=== PATIENT | male | born 1980 | race Caucasian/White ===

== ENCOUNTER 2017-12-16 13:27 | Emergency (ER) | payer OTHER | END 2017-12-16 13:44 | disposition left against medical advice (07) | LOC: ED 13:38 | DX: Z00.00 Encounter for general adult medical examination without abnormal findings (principal) | CPT/HCPCS: 99281 ==

== ENCOUNTER 2017-12-22 19:22 | Emergency (ER) | payer OTHER ==
[~2017-12-22] VITALS: Ht 177.8 cm; Wt 62.0 kg
[2017-12-22 21:18] VITALS: BP 127/75
== END 2017-12-22 22:17 | disposition home or self-care (01) ==
LOC: ED 20:14
DX: S92.254A Nondisplaced fracture of navicular [scaphoid] of right foot, initial encounter for closed fracture (principal); S06.310A Contusion and laceration of right cerebrum without loss of consciousness, initial encounter; F17.200 Nicotine dependence, unspecified, uncomplicated; X58.XXXA Exposure to other specified factors, initial encounter; Y93.89 Activity, other specified; Y92.89 Other specified places as the place of occurrence of the external cause; Y99.8 Other external cause status
CPT/HCPCS: 70450; 72020; 72050; 99284

== ENCOUNTER 2018-05-05 07:10 | Emergency (ER) | payer MEDICAID, OTHER ==
[~2018-05-05] VITALS: Ht 177.8 cm; Wt 72.5 kg
[2018-05-05 07:20] VITALS: BP 147/91
--- NOTE | 2018-05-05 08:06 | NUR ---
PT AMBULATORY IN NAD FROM [facility] TO [facility] AT THIS TIME
== END 2018-05-05 08:56 | disposition home or self-care (01) ==
LOC: ED 08:54
DX: K08.89 Other specified disorders of teeth and supporting structures (principal); F17.200 Nicotine dependence, unspecified, uncomplicated
CPT/HCPCS: 99283